=== PATIENT | male | born 1990 | race Two or more races ===

== ENCOUNTER 2020-08-19 13:53 | Emergency (ER) | payer MEDICAID ==
[~2020-08-19] VITALS: Ht 170.2 cm; Wt 74.8 kg
[2020-08-19] MEDS ORDERED: ONDANSETRON HCL/PF 4 MG/2 ML VIAL IVP ONE (14:00)
[2020-08-19] MEDS ORDERED: PANTOPRAZOLE 40 MG VIAL IV ONE (14:00)
[2020-08-19] MEDS ORDERED: IV NS 0.9% 1,000 ML BAG IV ONE (14:00)
--- NOTE | 2020-08-19 14:00 | NUR ---
[address] C/O VOMITING BLOOD S PER PT. +ETOH. PATIENT A/OX4, BREATHING EVEN AND UNLABORED, NO SOB NOTED. NEEDS ATTENDED.
[2020-08-19] MEDS ORDERED: ONDANSETRON HCL/PF 4 MG/2 ML VIAL ONE (14:09)
[2020-08-19] MEDS ORDERED: PANTOPRAZOLE 40 MG VIAL ONE (14:09)
[2020-08-19 14:13] LABS: BASOPHILS # (AUTO) 0.1 /CMM (0.0-0.2); BASOPHILS % (AUTO) 1.2 % (0.0-2.0); HEMATOCRIT 43 % (39-51); HEMOGLOBIN 14.4 g/dL (13.5-17.5); LYMPHOCYTES # (AUTO) 0.6 /CMM (0.8-4.8); LYMPHOCYTES % (AUTO) 8.2 % (20.0-44.0); MEAN CORPUSCULAR HGB CONC 34 g/dl (31.0-36.0); MEAN CORPUSCULAR VOLUME 99 fL (80-96); MONOCYTES # (AUTO) 0.7 /CMM (0.1-1.30); MONOCYTES % (AUTO) 10.2 % (2.0-12.0); NEUTROPHILS # (AUTO) 5.4 /CMM (1.8-8.9); NEUTROPHILS % (AUTO) 80.4 % (43.0-81.0); PLATELET COUNT (AUTO) 72 /CMM (150-450); RED BLOOD CELL COUNT(AUTO) 4.33 MIL/uL (4.5-6.0); WHITE BLOOD COUNT (AUTO) 6.8 K/uL (4.3-11.0)
[2020-08-19 14:33] LABS: ALBUMIN 4.4 g/dL (3.4-5.0); BILIRUBIN,DIRECT 1.2 mg/dL (0.0-0.2); BILIRUBIN,TOTAL 3.7 mg/dL (0.2-1.0); CALCIUM, SERUM 9.7 mg/dL (8.5-10.1); CREATININE 0.8 mg/dL (0.6-1.3); POTASSIUM 3.5 mmol/L (3.5-5.1); TOTAL PROTEIN, SERUM 10.5 g/dL (6.4-8.2)
[2020-08-19] MEDS ORDERED: Thiamine 100 MG in IV D5W 50 ML IV SCH (15:00)
[2020-08-19 15:51] LABS: LYMPHOCYTES % (MANUAL) 23 % (16-48); MONOCYTES % (MANUAL) 6 % (0-11.0); NEUTROPHILS % (MANUAL) 71 (42-76)
--- NOTE | 2020-08-19 17:02 | NUR ---
patient resting, no distress noted. Needs attended.
[2020-08-19] MEDS ORDERED: ONDA4TAB11 PO (17:44)
--- NOTE | 2020-08-19 17:55 | NUR ---
Patient a/ox4, breathing even and unlabored, no sob noted, ambulatory with steady gait. IV removed. Catheter intact and site benign. Pressure and 4x4 applied to site. No bleeding noted.Patient discharged to home in stable condition. Written and verbal after care instructions given. Patient verbalizes understanding of instruction.
[2020-08-19 17:56] VITALS: BP 153/86
== END 2020-08-19 17:56 | disposition home or self-care (01) ==
LOC: ER 13:57
DX: R11.2 Nausea with vomiting, unspecified (principal); K76.9 Liver disease, unspecified; K22.6 Gastro-esophageal laceration-hemorrhage syndrome; Z59.0 Homelessness
CPT/HCPCS: 36415; 76705; 80048; 80076; 83690; 85007; 85025; 96361; 96365; 96375; 99284; C9113; J2405; J3411; J7030; J7060